=== PATIENT | female | born 1990 | race Caucasian/White ===

== ENCOUNTER 2019-02-27 22:15 | Emergency (ER) | payer SELFPAY ==
[~2019-02-27] VITALS: Ht 165.1 cm; Wt 77.0 kg
[2019-02-28 01:48] VITALS: BP 155/99
[2019-02-28 03:21] LABS: BASOPHILS % 0.4 % (0.0-2.0); EOSINOPHILS % 0.3 % (0.0-5.0); HEMATOCRIT. 40.4 % (36.0-48.0); HEMOGLOBIN. 13.6 g/dL (12.0-16.0); LYMPHOCYTES % 19.3 % (20.0-50.0); MEAN CORPUSCULAR HEMOGLOBIN 29.6 pg (28.0-32.0); MEAN CORPUSCULAR VOLUME 87.7 fL (81.0-99.0); MONOCYTES % 4.3 % (2.0-8.0); NEUTROPHILS % 75.7 % (40.0-76.0); PLATELET 276 x1000/uL (130-400); RED BLOOD CELL COUNT 4.61 mill/uL (4.2-5.4)
[2019-02-28 03:22] LABS: CHLORIDE 107 mEq/L (98-107)
[2019-02-28 03:26] LABS: ETHANOL BLOOD < 10 mg/dL
[2019-02-28 03:54] LABS: *BARBITURATES SCREEN URINE NEGATIVE (NEGATIVE); *BENZODIAZEPINES SCREEN URINE NEGATIVE (NEGATIVE)
[2019-02-28 03:55] LABS: *COCAINE SCREEN URINE NEGATIVE (NEGATIVE); CANNABINOID URINE SCREEN NEGATIVE (NEGATIVE); METHADONE URINE SCREEN NEGATIVE (NEGATIVE); PHENCYCLIDINE URINE SCREEN NEGATIVE (NEGATIVE)
[2019-02-28 03:56] LABS: *AMPHETAMINES SCREEN URINE NEGATIVE (NEGATIVE); OPIATES URINE SCREEN NEGATIVE (NEGATIVE)
== END 2019-02-28 05:54 | disposition home or self-care (01) ==
LOC: ER 22:15
DX: F41.9 Anxiety disorder, unspecified (principal); R00.2 Palpitations; Z98.890 Other specified postprocedural states; Z91.018 Allergy to other foods
CPT/HCPCS: 36415; 71045; 80305; 80320; 81025; 84443; 84484; 85379; 93005; 99284; G0480